=== PATIENT | female | born 2000 | race Caucasian/White ===

== ENCOUNTER → 2023-10-23 09:49 | Outpatient (BNVA) | payer MEDICAID, SELFPAY | PROVIDERS: Family Provider Family Medicine; PCP Nurse Practitioner Family; Visit Provider Nurse Practitioner Family | DX: D82.1 Di George's syndrome (principal); Z98.890 Other specified postprocedural states; Z87.74 Personal history of (corrected) congenital malformations of heart and circulatory system; R62.52 Short stature (child) | CPT/HCPCS: 80053; 80061; 84443; 85025 ==

== ENCOUNTER 2023-11-22 07:55 | Outpatient (CLI) | payer MEDICAID, SELFPAY ==
--- NOTE | 2023-11-22 08:00 | USCV_ITS ---
Svetlana Zendejas Age: 23 Gender: F : 2000 Exam Date: 11/22/2023 08:06 Ordering Phys: Negin Oneal NP Technologist: Exam Location: [facility] [place] Indication: Tetrology of [place] repair BP: 120 / 70 HR: 133 Rhythm: Sinus Technical Quality: Adequate MEASUREMENTS (Male / Female) Normal Values 2D ECHO LV Diastolic Diameter PLAX 2.8 cm 4.2 - 5.9 / 3.9 - 5.3 cm IVS Diastolic Thickness 1.0 cm 0.6 - 1.0 / 0.6 - 0.9 cm IVS Systolic Thickness 1.1 cm LVPW Diastolic Thickness 1.0 cm 0.6 - 1.0 / 0.6 - 0.9 cm LVPW Systolic Thickness 1.0 cm LV Ejection Fraction 2D Teich 66.7 % LV Ejection Fraction MOD 2C 48.7 % LV Ejection Fraction 2C AL 50.6 % M-MODE LA Ao Ratio MM 1.0 AV Cusp Separation MM 1.8 cm DOPPLER AV Peak Velocity 97.0 cm/s LVOT Peak Velocity 71.0 cm/s MV Peak Velocity 141.0 cm/s MV Area PHT 4.0 cm squared Mitral E to A Ratio 1.9 PV Peak Velocity 168.0 cm/s FINDINGS Left Ventricle Left ventricle is normal in size. LV systolic function is normal with EF of 50-55%. No regional wall motion abnormalities are seen. Septal motion is consistent with prior surgery. No obvious VSD Right Ventricle Grossly mild hypokinesis Right Atrium Normal in size Left Atrium Normal in size Mitral Valve Mitral valve is thickened. Trace mitral regurgitation. Aortic Valve Grossly normal. No significant stenosis. Tricuspid Valve Grossly normal Pulmonic Valve Mild pulmonic regurgitation. No significant stenosis Pericardium Normal Aorta Not well visualized IVC Not well visualized CONCLUSIONS Technically limited quality echocardiogram because of limited ultrasonic windows LV systolic function is normal with EF of 50-55% No obvious ventricular septal defect Grossly mild hypokinesis of right ventricle. Trace mitral regurgitation Mild pulmonic regurgitation. No comparison studies are available Yovanny Santos MD (Electronically Signed) Final Date: 30 November 2023 08:41 S
== END 2023-11-22 07:56 | disposition home or self-care (01) ==
LOC: RAD 07:55
PROVIDERS: Family Provider Family Medicine; PCP Nurse Practitioner Family; Visit Provider Nurse Practitioner Family
DX: Z87.74 Personal history of (corrected) congenital malformations of heart and circulatory system (principal); D82.1 Di George's syndrome
CPT/HCPCS: 93306

== ENCOUNTER → 2024-12-09 13:40 | Outpatient (BNVA) | payer MEDICAID, SELFPAY | PROVIDERS: Family Provider Family Medicine; PCP Nurse Practitioner Family; Visit Provider Nurse Practitioner Family | DX: Z76.89 Persons encountering health services in other specified circumstances (principal); R62.52 Short stature (child); D82.1 Di George's syndrome; Z87.74 Personal history of (corrected) congenital malformations of heart and circulatory system | CPT/HCPCS: 80053; 80061; 84443; 85025 ==